=== PATIENT | female | born 1945 | race Caucasian/White ===

== ENCOUNTER 2022-06-05 16:55 | Emergency (ER) | payer MEDICARE | END 2022-06-05 17:50 | disposition home or self-care (01) | LOC: CSHERS 16:55 | DX: I10 Essential (primary) hypertension (principal); Z86.73 Personal history of transient ischemic attack (TIA), and cerebral infarction without residual deficits; Z79.899 Other long term (current) drug therapy | CPT/HCPCS: 93005; 99283 ==

== ENCOUNTER 2022-06-26 02:48 | Emergency (ER) | payer MEDICARE ==
[2022-06-26] MEDS ORDERED: HYDROcodone/Acetaminophen 10/325 mg Tablet ONE (03:06)
[2022-06-26] MEDS ORDERED: Diazepam 5 MG TAB ONE (03:06)
== END 2022-06-26 04:28 | disposition home or self-care (01) ==
LOC: CSHERS 02:48
DX: M25.552 Pain in left hip (principal); G89.29 Other chronic pain; G25.81 Restless legs syndrome; F41.9 Anxiety disorder, unspecified; G47.00 Insomnia, unspecified; I10 Essential (primary) hypertension; F17.210 Nicotine dependence, cigarettes, uncomplicated; Z86.73 Personal history of transient ischemic attack (TIA), and cerebral infarction without residual deficits
CPT/HCPCS: 99283

== ENCOUNTER 2022-07-01 19:38 | Inpatient (IN) | payer MEDICARE ==
[2022-07-01 20:34] LABS: #Basophils 0.1 10x3/uL (0.0-0.2); #Eosinphils 0.2 10x3/uL (0.0-0.5); #Monocytes 0.7 10x3/uL (0.0-1.1); #Neutrophils 6.5 10x3/uL (1.5-8.4); %Basophils 0.5 % (0.0-2.0); %Eosinophils 1.9 % (0.0-6.0); %Lymphocytes 24.5 % (18.0-47.0); %Monocytes 7.2 % (0.0-10.0); %Neutrophils 65.6 % (40.0-75.0); Hemoglobin 13.9 g/dL (12.0-15.5); Mean Corpuscular HGB CONC 36.8 g/dL (32.0-36.0); Mean Corpuscular Hemoglobin 31.7 pg (27.0-33.0); Mean Corpuscular Volume 86.1 fl (81.6-98.3); Mean Platelet Volume 8.5 fl (7.4-10.4); Platelet Count 251 10x3/uL (150-450); RBC Distribution Width 12.2 % (11.5-14.5); Red Blood Cell (RBC) Count 4.39 10x6/uL (3.90-5.03); White Blood Cell (WBC) Count 9.9 10x3/uL (3.5-10.5)
[2022-07-01 20:39] LABS: Anion Gap 15 mmol/L (10-20); BUN (Urea Nitrogen) 8 mg/dL (9.8-20.1); Calc. Creatinine Clearance 0 mL/min (70-130); Calcium 9.4 mg/dL (7.8-10.44); Carbon Dioxide 26 mmol/L (23-31); Chloride 99 mmol/L (98-107); Estimated GFR 94; Glucose 184 mg/dL (83-110); Sodium 137 mmol/L (136-145)
[2022-07-01 21:57] LABS: Bilirubin Neg (Negative); Blood, Urine 25 (Negative); Clarity Slightly Cloudy (Clear); Glucose, Urine (Dipstick) Normal (Negative); Ketone, Urine Negative (Negative); Leukocyte 500 (Negative); Nitrite Positive (Negative); Protein, Urine (Dipstick) 100 mg/dl (Neg-Trace); Specific Gravity, Urine 1.005 (1.002-1.036); Urobilinogen Normal mg/dL (Less than 2)
[2022-07-01 22:00] LABS: Bacteria/HPF 2+ HPF (None Seen); RBC/HPF 0-3 HPF (0-3); WBC/HPF 21-50 HPF (0-3)
[2022-07-01 22:35] LABS: SARS-CoV-2 NAA Rapid Test Not Detected (NotDetected)
[2022-07-01] MEDS ORDERED: cefTRIAXone\\ROCEPHIN 2 GM VIAL ONE (23:34)
[2022-07-02] MEDS ORDERED: Ondansetron PF 4 MG/2 ML Vial ONE (00:10)
[2022-07-02] MEDS ORDERED: Morphine 4 MG/ML VIAL ONE (00:10)
[2022-07-02] MEDS ORDERED: CeleCOXIB 100 MG CAP PO PRN (01:13)
[2022-07-02] MEDS ORDERED: Senokot S 8.6-50 MG TAB PO PRN (01:13)
[2022-07-02] MEDS ORDERED: Potassium Chloride 20 MEQ TAB PO SCH (01:45)
[2022-07-02] MEDS ORDERED: Amlodipine 10 MG TAB PO SCH (01:45)
[2022-07-02 02:00] VITALS: BMI 33.4
[2022-07-02] MEDS: Acetaminophen 325 MG TAB PO SCH ×4 (02:18→21:19)
[2022-07-02] MEDS: Potassium Chloride 20 MEQ in Premix Bag 1 BAG IVPB SCH ×2 (02:18→04:50)
[2022-07-02] MEDS: HYDROcodone/Acetaminophen 5/325 mg Tablet PO PRN ×4 (03:05→22:44)
[2022-07-02] MEDS ORDERED: cloNIDine 0.1 MG TAB PO SCH ×2 (06:45→21:00)
[2022-07-02 07:34] LABS: Anion Gap 12 mmol/L (10-20); BUN (Urea Nitrogen) 10 mg/dL (9.8-20.1); Calc. Creatinine Clearance 87 mL/min (70-130); Calcium 9.5 mg/dL (7.8-10.44); Carbon Dioxide 31 mmol/L (23-31); Chloride 98 mmol/L (98-107); Estimated GFR 88; Glucose 324 mg/dL (83-110); Magnesium 1.6 mg/dL (1.6-2.6); Potassium 4.2 mmol/L (3.5-5.1); Sodium 137 mmol/L (136-145)
[2022-07-02] MEDS: CeleCOXIB 100 MG CAP PO SCH ×2 (08:42→21:18)
[2022-07-02] MEDS: Enoxaparin Sodium 40 MG/0.4 ML SYRINGE SC SCH (08:42)
[2022-07-02] MEDS: Aspirin 81 mg Enteric Coated Tablet PO SCH (08:42)
[2022-07-02] MEDS: Venlafaxine HCl XR 75 MG CAP PO SCH ×2 (08:42→21:16)
[2022-07-02] MEDS: Hydrochlorothiazide 25 MG TAB PO SCH (08:43)
[2022-07-02] MEDS: Bisoprolol Fumarate 5 MG TAB PO SCH (08:44)
[2022-07-02] MEDS ORDERED: HYDROCHLOROTHIAZIDE PO SCH (09:00)
[2022-07-02] MEDS ORDERED: BISOPROLOL PO SCH (09:00)
[2022-07-02] MEDS ORDERED: [UNRECOGNIZED DRUG - OTHER] PO SCH (09:00)
[2022-07-02] MEDS: hydrALAZINE 25 MG TAB PO SCH ×2 (13:54→21:16)
[2022-07-02 14:48] LABS: Hemoglobin A1c 7.3 % (4.0-6.0)
[2022-07-02] MEDS: hydrALAZINE 20 MG/ML VIAL SLOW IVP PRN (17:20)
[2022-07-02] MEDS: Amlodipine 10 MG TAB PO SCH (21:18)
[2022-07-02] MEDS: Pramipexole Di-HCl 0.25 MG TAB PO SCH (21:19)
[2022-07-02] MEDS: cefTRIAXone\\ROCEPHIN 1 GM in Sodium Chloride 0.9% 100 ML IVPB SCH (23:59)
[2022-07-03] MEDS: Acetaminophen 325 MG TAB PO SCH ×4 (02:53→20:26)
[2022-07-03] MEDS: HYDROcodone/Acetaminophen 5/325 mg Tablet PO PRN ×4 (05:15→23:15)
[2022-07-03] MEDS: hydrALAZINE 20 MG/ML VIAL SLOW IVP PRN ×2 (05:55→13:22)
[2022-07-03] MEDS: Bisoprolol Fumarate 5 MG TAB PO SCH (08:53)
[2022-07-03] MEDS: hydrALAZINE 25 MG TAB PO SCH ×3 (08:53→20:30)
[2022-07-03] MEDS: CeleCOXIB 100 MG CAP PO SCH ×2 (08:54→20:31)
[2022-07-03] MEDS: Aspirin 81 mg Enteric Coated Tablet PO SCH (08:54)
[2022-07-03] MEDS: Venlafaxine HCl XR 75 MG CAP PO SCH ×2 (08:54→20:30)
[2022-07-03] MEDS: Hydrochlorothiazide 25 MG TAB PO SCH (08:54)
[2022-07-03] MEDS: Enoxaparin Sodium 40 MG/0.4 ML SYRINGE SC SCH (08:54)
[2022-07-03] MEDS: Amlodipine 10 MG TAB PO SCH (20:27)
[2022-07-03] MEDS: cloNIDine 0.1 MG TAB PO SCH (20:29)
[2022-07-03] MEDS: Pramipexole Di-HCl 0.25 MG TAB PO SCH (20:31)
[2022-07-03] MEDS: cefTRIAXone\\ROCEPHIN 1 GM in Sodium Chloride 0.9% 100 ML IVPB SCH (23:19)
[2022-07-04] MEDS: hydrALAZINE 20 MG/ML VIAL SLOW IVP PRN ×2 (00:26→05:21)
[2022-07-04] MEDS: Acetaminophen 325 MG TAB PO SCH ×4 (02:24→22:05)
[2022-07-04] MEDS: HYDROcodone/Acetaminophen 5/325 mg Tablet PO PRN ×3 (05:00→20:38)
[2022-07-04] MEDS: CeleCOXIB 100 MG CAP PO SCH (07:34)
[2022-07-04] MEDS: Aspirin 81 mg Enteric Coated Tablet PO SCH (07:34)
[2022-07-04] MEDS: Hydrochlorothiazide 25 MG TAB PO SCH (07:34)
[2022-07-04] MEDS: cloNIDine 0.1 MG TAB PO SCH ×2 (07:34→20:40)
[2022-07-04] MEDS: hydrALAZINE 25 MG TAB PO SCH ×3 (07:34→20:39)
[2022-07-04] MEDS: Venlafaxine HCl XR 75 MG CAP PO SCH ×2 (07:35→20:43)
[2022-07-04] MEDS: Enoxaparin Sodium 40 MG/0.4 ML SYRINGE SC SCH (07:35)
[2022-07-04] MEDS: Bisoprolol Fumarate 5 MG TAB PO SCH (07:35)
[2022-07-04] MEDS ORDERED: cloNIDine 0.1 MG TAB PO SCH (09:00)
[2022-07-04] MEDS ORDERED: hydrALAZINE 25 MG TAB PO SCH (09:00)
[2022-07-04] MEDS: Carvedilol 6.25 MG TAB PO SCH (15:53)
[2022-07-04] MEDS: Amlodipine 10 MG TAB PO SCH (20:41)
[2022-07-04] MEDS: Pramipexole Di-HCl 0.25 MG TAB PO SCH (20:42)
[2022-07-04] MEDS: cefTRIAXone\\ROCEPHIN 1 GM in Sodium Chloride 0.9% 100 ML IVPB SCH (23:43)
[2022-07-05] MEDS: HYDROcodone/Acetaminophen 5/325 mg Tablet PO PRN ×6 (00:23→23:58)
[2022-07-05] MEDS: Acetaminophen 325 MG TAB PO SCH ×3 (03:55→16:16)
[2022-07-05] MEDS: hydrALAZINE 20 MG/ML VIAL SLOW IVP PRN (04:09)
[2022-07-05] MEDS: cloNIDine 0.1 MG TAB PO SCH ×2 (09:43→21:09)
[2022-07-05] MEDS: Aspirin 81 mg Enteric Coated Tablet PO SCH (09:44)
[2022-07-05] MEDS: hydrALAZINE 25 MG TAB PO SCH ×3 (09:44→21:11)
[2022-07-05] MEDS: Venlafaxine HCl XR 75 MG CAP PO SCH ×2 (09:44→21:09)
[2022-07-05] MEDS: Carvedilol 6.25 MG TAB PO SCH ×2 (09:45→17:47)
[2022-07-05] MEDS: Enoxaparin Sodium 40 MG/0.4 ML SYRINGE SC SCH (09:46)
[2022-07-05] MEDS ORDERED: Nicotine 21 MG PATCH TOP SCH (16:00)
[2022-07-05] MEDS: Pramipexole Di-HCl 0.25 MG TAB PO SCH (19:51)
[2022-07-05] MEDS: Amlodipine 10 MG TAB PO SCH (21:10)
[2022-07-05] MEDS: cefTRIAXone\\ROCEPHIN 1 GM in Sodium Chloride 0.9% 100 ML IVPB SCH (23:31)
[2022-07-06] MEDS: HYDROcodone/Acetaminophen 5/325 mg Tablet PO PRN ×3 (04:11→19:37)
[2022-07-06] MEDS: Acetaminophen 325 MG TAB PO SCH ×5 (05:11→22:00)
[2022-07-06] MEDS: hydrALAZINE 20 MG/ML VIAL SLOW IVP PRN (05:17)
[2022-07-06] MEDS: Enoxaparin Sodium 40 MG/0.4 ML SYRINGE SC SCH (09:14)
[2022-07-06] MEDS: Nicotine 21 MG PATCH TOP SCH (09:14)
[2022-07-06] MEDS: Aspirin 81 mg Enteric Coated Tablet PO SCH (09:15)
[2022-07-06] MEDS: cloNIDine 0.1 MG TAB PO SCH ×2 (09:15→22:00)
[2022-07-06] MEDS: Venlafaxine HCl XR 75 MG CAP PO SCH ×2 (09:16→22:00)
[2022-07-06] MEDS: hydrALAZINE 25 MG TAB PO SCH ×3 (09:17→22:00)
[2022-07-06] MEDS: Carvedilol 6.25 MG TAB PO SCH ×2 (09:17→17:20)
[2022-07-06] MEDS: Amlodipine 10 MG TAB PO SCH (22:00)
[2022-07-06] MEDS: Pramipexole Di-HCl 0.25 MG TAB PO SCH (22:00)
[2022-07-06] MEDS: Fluticasone Propionate Nasal Spray 16 gm Bottle NASAL SCH (22:15)
[2022-07-06] MEDS ORDERED: Calcium Carbonate 500 MG ChewTAB PO PRN (23:08)
[2022-07-06] MEDS: cefTRIAXone\\ROCEPHIN 1 GM in Sodium Chloride 0.9% 100 ML IVPB SCH (23:20)
[2022-07-07] MEDS: HYDROcodone/Acetaminophen 5/325 mg Tablet PO PRN ×3 (00:11→09:19)
[2022-07-07] MEDS: Acetaminophen 325 MG TAB PO SCH ×2 (02:00→08:59)
[2022-07-07] MEDS: Enoxaparin Sodium 40 MG/0.4 ML SYRINGE SC SCH (08:57)
[2022-07-07] MEDS: cloNIDine 0.1 MG TAB PO SCH (08:57)
[2022-07-07] MEDS: Aspirin 81 mg Enteric Coated Tablet PO SCH (08:58)
[2022-07-07] MEDS: Carvedilol 6.25 MG TAB PO SCH (08:58)
[2022-07-07] MEDS: hydrALAZINE 25 MG TAB PO SCH (08:58)
[2022-07-07] MEDS: Nicotine 21 MG PATCH TOP SCH (09:06)
[2022-07-07] MEDS: Venlafaxine HCl XR 75 MG CAP PO SCH (09:06)
[2022-07-07] MEDS: Fluticasone Propionate Nasal Spray 16 gm Bottle NASAL SCH (09:06)
[2022-07-07] MEDS ORDERED: Estradiol 1 MG TAB PO SCH (10:15)
[2022-07-07 11:44] VITALS: BP 134/60; TEMP 97.6
[2022-07-08] MEDS ORDERED: Estradiol 1 MG TAB PO SCH (09:00)
== END 2022-07-07 12:15 | DRG 690 ==
LOC: CSHERS 19:38 → CSHTELE 07-02 01:53
PROVIDERS: ADMIT Family Medicine; ATTEND Hospitalist
DX: N39.0 Urinary tract infection, site not specified (principal); G89.29 Other chronic pain; M54.9 Dorsalgia, unspecified; E87.6 Hypokalemia; F32.A Depression, unspecified; G25.81 Restless legs syndrome; I10 Essential (primary) hypertension; F17.210 Nicotine dependence, cigarettes, uncomplicated; R73.9 Hyperglycemia, unspecified; Z74.09 Other reduced mobility; M19.90 Unspecified osteoarthritis, unspecified site; R53.1 Weakness; B96.20 Unspecified Escherichia coli [E. coli] as the cause of diseases classified elsewhere; F41.9 Anxiety disorder, unspecified; Z20.822 Contact with and (suspected) exposure to COVID-19; Z79.899 Other long term (current) drug therapy; Z88.8 Allergy status to other drugs, medicaments and biological substances; Z88.1 Allergy status to other antibiotic agents; I69.334 Monoplegia of upper limb following cerebral infarction affecting left non-dominant side; Z90.89 Acquired absence of other organs; Z90.49 Acquired absence of other specified parts of digestive tract; Z90.710 Acquired absence of both cervix and uterus; Z98.890 Other specified postprocedural states; Z90.79 Acquired absence of other genital organ(s); Z82.49 Family history of ischemic heart disease and other diseases of the circulatory system; Z90.722 Acquired absence of ovaries, bilateral
CPT/HCPCS: 36415; 71045; 80048; 81003; 81015; 83036; 83605; 83735; 85025; 87040; 87077; 87086; 87186; 96374; 96375; J0360; J0696; J1650; J2270; J2405; J3480; J3490; U0002

== ENCOUNTER 2022-07-25 20:40 | Emergency (ER) | payer MEDICARE ==
[2022-07-25 22:25] LABS: Bilirubin Neg (Negative); Blood, Urine 250 (Negative); Clarity Cloudy (Clear); Glucose, Urine (Dipstick) Normal (Negative); Ketone, Urine Negative (Negative); Leukocyte 500 (Negative); Nitrite Positive (Negative); Protein, Urine (Dipstick) 500 mg/dl (Neg-Trace); Urobilinogen Normal mg/dL (Less than 2)
[2022-07-25 22:32] LABS: RBC/HPF 21-50 HPF (0-3)
[2022-07-25 22:33] LABS: Bacteria/HPF 4+ HPF (None Seen); Squamous Epithelial None Seen HPF (0-3); WBC/HPF Greater than 50 HPF (0-3)
[2022-07-25] MEDS ORDERED: cefTRIAXone\\ROCEPHIN 1 GM VIAL ONE (23:08)
[2022-07-25] MEDS ORDERED: Sterile Water 10 ML ONE (23:10)
== END 2022-07-25 23:45 | disposition home or self-care (01) ==
LOC: CSHERS 20:40
DX: N30.00 Acute cystitis without hematuria (principal); I10 Essential (primary) hypertension; F17.210 Nicotine dependence, cigarettes, uncomplicated
CPT/HCPCS: 51701; 81003; 81015; 87077; 87086; 87186; 96372; J0696